=== PATIENT | male | born 1965 | race Caucasian/White ===

== ENCOUNTER → 2023-07-16 07:41 | Day surgery (SDC) | payer OTHER, SELFPAY ==
--- NOTE | 2023-07-15 10:53 | HO.ANESPROP2 ---
HPI - Anesthesia Eval Consult details Narrative: Cx'd DOS for infection. 57yo M for Upper Endoscopy and Colonoscopy CAD with stent x 2 in 2021. Follows [facility]. Last office eval 05/2023. Stable except for some pleuritic pain present since 2021 cath. OK to hold plavix for procedure ~2 beers daily PMFSH Past Medical History Medical History (Updated 07/16/23 @ 08:43 by Shonna Garcia, RN) Ringworm of body CAD (coronary artery disease) HTN (hypertension) Fatty liver Khalil esophagus GERD (gastroesophageal reflux disease) Surgical History Surgical History (Updated 07/16/23 @ 08:29 by Shonna Garcia, LEX) History of carpal tunnel surgery of right wrist Hx of nasal septoplasty Hx of repair of right rotator cuff History of heart artery stent Hx of colonoscopy Hx of esophagogastroduodenoscopy Social History Social History Patient Tobacco Use Status: Former Tobacco user Quit Date: 2 yeras Use of substances other than those prescribed or required for medical reasons: Yes Substance Use Type Other:: CBD cream for pain Are you DNR?: No Advance Directives: No Advance Directives Information Provided: Yes Meds Allergies Allergy/AdvReac Type Severity Reaction Status Date / Time Influenza Virus Vaccines Allergy Unknown Verified 07/15/23 10:37 morphine Allergy Unknown Verified 07/15/23 10:37 Home Medications Medication Instructions Recorded Confirmed Last Taken Type CoQ-10 PO DAILY 07/15/23 Unknown History clonazepam 1 mg tablet 1 mg PO BEDTIME 07/15/23 07/15/23 Unknown History clopidogrel 75 mg tablet 75 mg PO DAILY 07/15/23 07/15/23 Unknown History metoprolol succinate 50 mg 50 mg PO DAILY 07/15/23 07/15/23 07/16/23 History tablet,extended release 24 hr omeprazole 20 mg capsule,delayed 20 mg PO DAILY 07/15/23 07/15/23 07/16/23 History release Exam Exam Date and Time: July 15, 2023 1053
[2023-07-16 08:32] VITALS: BMI 29.3
[2023-07-16 08:40] VITALS: BP 127/87; PULSE 65; RESP 18; TEMP 36.5; O2SAT 96
--- NOTE | 2023-07-16 09:32 | PC.NURSE ---
case cancelled due to active recurring and treated ringworm per OR nsg director, infection control. Nia spoke to pt, who is upset, encouraged to call Nia for prompt reschedule once rx'd.
== END ==
PROVIDERS: PCP Internal Medicine; Visit Provider Internal Medicine Gastroenterology
DX: Z12.11 Encounter for screening for malignant neoplasm of colon (principal); Z53.09 Procedure and treatment not carried out because of other contraindication; B35.9 Dermatophytosis, unspecified

== ENCOUNTER 2023-09-03 09:27 | Day surgery (SDC) | payer OTHER, SELFPAY ==
--- NOTE | 2023-09-03 09:40 | P.CONAN_ITS ---
Documented by User: Fiona Kim NP 09/02/23 09:53 HPI - Anesthesia Eval Consult details Narrative: Previously cancelled for recurrent ringworm infection. 57yo M for Upper Endoscopy and Colonoscopy CAD with stent x 2 in 2021. Follows [facility]. Last office eval . Stable except for some pleuritic pain present since 2021 cath. OK to hold plavix for procedure ~2 beers daily PMFSH Past Medical History Medical History (Updated 08/30/23 @ 11:51 by Margaret Whittaker RN) Ringworm of body CAD (coronary artery disease) HTN (hypertension) Fatty liver Khalil esophagus GERD (gastroesophageal reflux disease) Surgical History Surgical History (Updated 07/16/23 @ 08:29 by Shonna Garcia RN) History of carpal tunnel surgery of right wrist Hx of nasal septoplasty Hx of repair of right rotator cuff History of heart artery stent Hx of colonoscopy Hx of esophagogastroduodenoscopy Social History Social History Patient Tobacco Use Status: Former Tobacco user Quit Date: 2 yeras Are you DNR?: No Advance Directives: No Advance Directives Information Provided: Yes Recently lost weight without trying: No Nutrition Risks: No Nutritional Risk Meds Allergies Allergy/AdvReac Type Severity Reaction Status Date / Time Influenza Virus Vaccines Allergy Unknown Verified 07/15/23 10:37 morphine Allergy Unknown Verified 07/15/23 10:37 Home Medications Medication Instructions Recorded Confirmed Last Taken Type clonazepam 1 mg tablet 1 mg PO BEDTIME 07/15/23 08/30/23 Unknown History clopidogrel 75 mg tablet 75 mg PO DAILY 07/15/23 08/30/23 Unknown History metoprolol succinate 50 mg 50 mg PO DAILY 07/15/23 08/30/23 07/16/23 History tablet,extended release 24 hr omeprazole 20 mg capsule,delayed 20 mg PO DAILY 07/15/23 08/30/23 07/16/23 History release coQ10 (ubiquinol) 100 mg capsule 100 mg PO BID 08/30/23 08/30/23 Unknown History Exam Exam Date and Time: September 02, 2023 0950 Height,Weight and Vital Signs: Height 5 ft 11 in Weight 97.522 kg Narrative Narrative: EKG 06/2022 NSR, no ischemic changes Echo 06/2022 (prior to stent) EF 55-60% with akinesis of basal inferior wall with nml RV size and function, no significant valve disease Assessment and Plan Assessment Anesthesia Assessment: Chart Reviewed Documented by User: Sejal Zarate DO 09/03/23 10:45 HPI - Anesthesia Eval Consult details Narrative: Previously cancelled for recurrent ringworm infection. 57yo M for Upper Endoscopy and Colonoscopy. EVE not on CPAP. CAD with stent x 2 in 2021. Follows [facility]. Last office eval 05/2023. Stable except for some pleuritic pain present since 2021 cath. OK to hold plavix for procedure ~2 beers daily PMFSH Past Medical History Medical History (Updated 08/30/23 @ 11:51 by Margaret Whittaker, LEX) Ringworm of body CAD (coronary artery disease) HTN (hypertension) Fatty liver Khalil esophagus GERD (gastroesophageal reflux disease) Surgical History Surgical History (Updated 07/16/23 @ 08:29 by Shonna Garcia RN) History of carpal tunnel surgery of right wrist Hx of nasal septoplasty Hx of repair of right rotator cuff History of heart artery stent Hx of colonoscopy Hx of esophagogastroduodenoscopy History of Problems with Anesthesia: No Social History Social History Patient Tobacco Use Status: Former Tobacco user Quit Date: 2 yeras Are you DNR?: No Advance Directives: No Advance Directives Information Provided: Yes Recently lost weight without trying: No Nutrition Risks: No Nutritional Risk Meds Allergies Allergy/AdvReac Type Severity Reaction Status Date / Time Influenza Virus Vaccines Allergy Unknown Verified 07/15/23 10:37 morphine Allergy Unknown Verified 07/15/23 10:37 Home Medications Medication Instructions Recorded Confirmed Last Taken Type clonazepam 1 mg tablet 1 mg PO BEDTIME 07/15/23 08/30/23 Unknown History clopidogrel 75 mg tablet 75 mg PO DAILY 07/15/23 08/30/23 Unknown History metoprolol succinate 50 mg 50 mg PO DAILY 07/15/23 08/30/23 07/16/23 History tablet,extended release 24 hr omeprazole 20 mg capsule,delayed 20 mg PO DAILY 07/15/23 08/30/23 07/16/23 History release coQ10 (ubiquinol) 100 mg capsule 100 mg PO BID 08/30/23 08/30/23 Unknown History Exam Exam Date and Time: September 03, 2023 1049 Height,Weight and Vital Signs: Height 5 ft 11 in Weight 97.522 kg Vital Signs Temperature 97.3 F 09/03/23 10:00 Pulse Rate 65 09/03/23 10:00 Respiratory Rate 18 09/03/23 10:00 Blood Pressure 141/89 H 09/03/23 10:00 Pulse Oximetry 98 09/03/23 10:00 Oxygen Delivery Method Room Air 09/03/23 10:00 Temperature 97.3 F 09/03/23 10:00 Pulse Rate 65 09/03/23 10:00 Respiratory Rate 18 09/03/23 10:00 Blood Pressure 141/89 H 09/03/23 10:00 Pulse Oximetry 98 09/03/23 10:00 Oxygen Delivery Method Room Air 09/03/23 10:00 Airway Mallampati Class: II TM Dist: >3cm Neck ROM: Full Loose/Missing/Broken Teeth: No Heart: S1S2 Lungs: CTAB Assessment and Plan Assessment Anesthesia Assessment: Anesthesia Plan Discussed and Chart Reviewed Final Anesthetic Review History of Problems with Anesthesia: No NPO: Yes ASA Class: III Final Preanesthetic Review: No Changes in Pt Med Stat, Meds/Allgs Chart Reviewed, Consent Obtained/Reviewed and Anes Risks/Benef Reviewed Patient Risk: Intermediate Procedure Risk: Low Anesthetic Plan Anesthetic Plan: MAC: and Agree w/ Assess. and Plan Disposition: Standard PACU
[2023-09-03 10:00] VITALS: BP 141/89; PULSE 65; RESP 18; TEMP 36.3; O2SAT 98; BMI 29.3
[2023-09-03] MEDS: Lactated Ringers 1,000 ML 100 ML IVCONT (10:05)
--- NOTE | 2023-09-03 10:42 | P.HPSUR_ITS ---
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 Details of Present Illness: see H&P no changes Relevant Family History (Specify if Yes): No Relevant Social History: None Present Medications: see Short Stay Collaborative assessment Medical History: No relevant PMH History of Previous Operations: No relevant previous surgery Allergies: Allergies Allergy/AdvReac Type Severity Reaction Status Date / Time Influenza Virus Vaccines Allergy Unknown Verified 07/15/23 10:37 morphine Allergy Unknown Verified 07/15/23 10:37 Review of Systems Sugical H&P ROS: Negative: Constitution, Cardiovascular, Respiratory, Neurological, Psychiatric, Hem-Onc, Allergic/Immunologic, Gastrointestinal, Genitourinary, Musculoskeletal, Integumentary, Endocrine and Eyes/Ears/Nose/Th roat Exam Surgical H&P Exam: Normal: HEENT, Normal: Heart, Normal: Lungs, Normal: Extremities, Normal: Abdomen, Normal: Skin and Normal: Neurological Plan Diagnosis/Plan: Unchanged I have reviewed the history and physical and performed a pertinent physical examination on my patient. No changes have occurred unless specified. Time Spent With Patient Time: Total time managing care of this patient today ____ minutes.
[2023-09-03 11:30] VITALS: BP 112/69; PULSE 63; RESP 16; TEMP 36.3; O2SAT 94
[2023-09-03 11:45] VITALS: BP 113/82; PULSE 62; RESP 16; TEMP 36.3; O2SAT 97
--- NOTE | 2023-09-03 11:50 | OP_ITS ---
DATE OF SERVICE: 09/03/2023 SURGEON: Mack Carlson MD INDICATIONS: 1. Khalil's esophagus. 2. Colon cancer screening. PREOPERATIVE DIAGNOSIS: POSTOPERATIVE DIAGNOSIS: PROCEDURE PERFORMED: ESTIMATED BLOOD LOSS: COMPLICATIONS: ANESTHESIA: Monitored anesthesia care. ASSISTANTS: SPECIMENS: PROCEDURES PERFORMED: Upper endoscopy with biopsy. Colonoscopy to the terminal ileum with snare polypectomy. DESCRIPTION OF PROCEDURE: A history and physical were performed. The risks and benefits of the procedure were explained to the patient. Informed consent was obtained. The patient placed in the left lateral decubitus position. The Olympus video gastroscope was introduced into the esophagus, stomach, and duodenum. Examination was performed, and the scope was removed. He tolerated the procedure well and was repositioned for colonoscopy. Digital rectal exam was performed and was found to be normal. The Olympus pediatric video colonoscope was introduced into the rectum and advanced to the cecum. The cecum was identified by transillumination, palpation, and identification of ileocecal valve. Examination was performed, and the scope was removed. He tolerated both procedures well, and was returned to recovery in stable condition. FINDINGS: Upper endoscopy: 1. Esophagus, the esophagus showed a less than 10 mm segment of Khalil esophagus with no esophagitis. Biopsies were obtained at the EG junction. 2. Stomach, the stomach was normal. 3. The duodenum, the bulb and 2nd portion were normal. Colonoscopy: The terminal ileum was examined and appeared normal. The visualized colonic mucosa was normal. The quality of prep was good. There was scattered diverticulosis in the left colon and sigmoid colon. A single polyp was identified and removed with cold snare at 25 cm. The polyp measured approximately 6 mm. Retroflexed examination showed moderate-sized internal hemorrhoids. IMPRESSION: 1. Khalil esophagus. 2. Colon polyp. RECOMMENDATION: Follow up biopsy results. MD KAREN Fowler/GLENYS / [id number]
== END 2023-09-03 12:05 | disposition home or self-care (01) ==
PROVIDERS: PCP Internal Medicine; Visit Provider Internal Medicine Gastroenterology
PROC: (CPT 45385; principal; 2023-09-03 10:50)
DX: Z12.11 Encounter for screening for malignant neoplasm of colon (principal); Z86.010 Personal history of colon polyps; K63.5 Polyp of colon; K57.30 Diverticulosis of large intestine without perforation or abscess without bleeding; K64.8 Other hemorrhoids; K62.5 Hemorrhage of anus and rectum; K22.70 Barrett's esophagus without dysplasia; K76.0 Fatty (change of) liver, not elsewhere classified; R14.0 Abdominal distension (gaseous); Z80.0 Family history of malignant neoplasm of digestive organs; K21.9 Gastro-esophageal reflux disease without esophagitis; I25.10 Atherosclerotic heart disease of native coronary artery without angina pectoris; Z95.5 Presence of coronary angioplasty implant and graft; I10 Essential (primary) hypertension; Z80.8 Family history of malignant neoplasm of other organs or systems; Z88.7 Allergy status to serum and vaccine; Z88.8 Allergy status to other drugs, medicaments and biological substances; Z98.890 Other specified postprocedural states; Z87.891 Personal history of nicotine dependence
CPT/HCPCS: 45385; 43239; 88305